=== PATIENT | female | born 1955 | race Caucasian/White ===

== ENCOUNTER 2019-07-25 01:44 | Day surgery (SDC) | payer BC, SELFPAY ==
[2019-07-20 13:08] VITALS: BMI 24.5
[2019-07-25 09:38] VITALS: BP 115/82; PULSE 111; RESP 16; TEMP 37.1; O2SAT 99
--- NOTE | 2019-07-25 09:42 | P.HP_ITS ---
History of Present Illness History of Present Illness Consent: Risks, benefits, and alternatives have been discussed and questions answered. Patient agrees to proceed with procedure. Chief complaint: Neoplasm Screening Narrative: Tory Chicas is a 64 year old W female Referred for screening colonoscopy. Patient is asymptomatic. Patient states she had a colonoscopy approximately 11 years ago. However since this time her brother was diagnosed with colon cancer in his early 60s PMFSH Past Medical History Medical History (Updated 07/25/19 @ 09:43 by Remigio Edwards MD) Dyslipidemia Surgical History Surgical History (Updated 07/25/19 @ 09:43 by Remigio Edwards MD) History of bilateral carpal tunnel release Social History Social History Smoking status: Former smoker (quit 20 years ago) Alcohol intake: never Meds Home Medications and Allergies Home Medications Medication Instructions Recorded Confirmed Type atorvastatin 10 mg tablet 10 mg PO DAILY #90 tablet 06/02/19 07/20/19 Rx alendronate [Fosamax] 70 mg PO WEEKLY 07/20/19 07/20/19 History multivitamin [Multiple Vitamins] 1 tablet PO DAILY 07/20/19 07/20/19 History Allergies Allergy/AdvReac Type Severity Reaction Status Date / Time nitrofurantoin Allergy Unknown AGITATION Verified 07/20/19 13:06 Exam Const: Orientation/consciousness: patient oriented x3 Resp: Auscultation: clear to auscultation bilaterally Cardio: Rate: regular rate Rhythm: regular rhythm Heart sounds: no murmurs GI: GI Palp: Yes Soft to palpation, No Tenderness to palpation present (GI), Yes No hepatosplenomegaly present and No Palpable mass present Auscultation: normal bowel sounds Neuro: General: patient oriented x3 and no focal motor deficits Extrem: General: no pedal edema
[2019-07-25] MEDS: LACTATED RINGERS 1,000 ML 150 ML IV CONT (10:00)
--- NOTE | 2019-07-25 10:12 | P.PNAN_ITS ---
Anes - Initial Pre Proc Eval Procedure: Operation Date: 07/25/19 11:00 Proposed Procedures p Screening Colonoscopy - Remigio Edwards MD Date/Time: 07/25/19 10:12 Surgeon: Remigio Edwards MD Pre Op Diagnosis: Neoplasm Screening Patient Data Age: 64 Gender: F Height: 5 ft 3 in Weight: 62.8 kg Last Vital Signs Temp 98.7 F 07/25/19 09:38 Pulse 111 H 07/25/19 09:38 Resp 16 07/25/19 09:38 BP 115/82 07/25/19 09:38 Pulse Ox 99 07/25/19 09:38 Allergies Allergy/AdvReac Type Severity Reaction Status Date / Time nitrofurantoin Allergy Unknown AGITATION Verified 07/25/19 09:52 Home Medications Medication Instructions Recorded Confirmed Type atorvastatin 10 mg tablet 10 mg PO DAILY #90 tablet 06/02/19 07/25/19 Rx alendronate [Fosamax] 70 mg PO WEEKLY 07/20/19 07/25/19 History multivitamin [Multiple Vitamins] 1 tablet PO DAILY 07/20/19 07/25/19 History Patient hx anesthesia problems: none Family hx anesthesia problems: none PMFSH Past Medical History Medical History (Updated 07/25/19 @ 09:43 by Remigio Edwards MD) Dyslipidemia Surgical History Surgical History (Updated 07/25/19 @ 09:43 by Remigio Edwards MD) History of bilateral carpal tunnel release Social History Social History Smoking status: Former smoker (quit 20 years ago) Alcohol intake: never Anes - Eval Final PreProcedure Day of Procedure 07/25/19 10:12 Patient weight: normal Heart: regular rate and rhythm Lungs: clear to auscultation Airway: Mallampati scale class II Neurological: alert and oriented Last oral intake: >/= 8 hours ASA classification: II Emergent: no Anesthetic plan: proceed Anesthesia type and monitoring: general GIVS and standard monitoring Informed Consent: The patient's anesthetic plan and its attendant risks and benefits were discussed with the patient/family/POA. Questions were solicited and answers provided to the satisfaction of the patient/family/POA.
[2019-07-25] MEDS: SIMETHICONE ORAL SUSPENSION 20 MG/0.3 ML 30 ML BOTTLE 0.6 ML IRRIGATION (11:30)
[2019-07-25 11:35] VITALS: BP 110/66; PULSE 90; RESP 17; O2SAT 98
[2019-07-25 11:45] VITALS: BP 94/60; PULSE 95; RESP 24; O2SAT 98
[2019-07-25 11:55] VITALS: BP 92/72; PULSE 78; RESP 19; O2SAT 100
== END 2019-07-25 12:06 | disposition home or self-care (01) ==
PROVIDERS: PCP Family Medicine; Visit Provider Internal Medicine Gastroenterology
PROC: 0DJD8ZZ Inspection of Lower Intestinal Tract, Via Natural or Artificial Opening Endoscopic (ICD-10-PCS; CPT 45378; principal; 2019-07-25 11:00)
DX: Z12.11 Encounter for screening for malignant neoplasm of colon (principal); K64.1 Second degree hemorrhoids; K64.4 Residual hemorrhoidal skin tags; K57.30 Diverticulosis of large intestine without perforation or abscess without bleeding; Z80.0 Family history of malignant neoplasm of digestive organs; E78.5 Hyperlipidemia, unspecified; Z87.891 Personal history of nicotine dependence
CPT/HCPCS: 45378; J2704; J7120

== ENCOUNTER 2019-12-16 08:46 | Outpatient (CLI) | payer BC, SELFPAY ==
--- NOTE | ~2019-12-16 | DEXA_ITS ---
Bone Density Report Name: Tory Chicas Age: 64 Sex: Female Ethnicity: White Date of : 1955 Indication: osteopenia; monitoring treatment; parental hip fracture; postmenopausal Referring Provider: Annamarie Lord Study: Bone densitometry was performed. Exam Date: December 16, 2019 Accession number: [id number] Bone Density: Region BMD T-score Z-score Classification AP Spine (L1-L4) 0.892 -1.4 0.3 Osteopenia Femoral Neck (Left) 0.547 -2.7 -1.2 Osteoporosis Total Hip (Left) 0.751 -1.6 -0.4 Osteopenia Total Hip Bilateral Avg 0.764 -1.5 -0.3 Osteopenia Femoral Neck (Right) 0.561 -2.6 -1.1 Osteoporosis Total Hip (Right) 0.776 -1.4 -0.1 Osteopenia World Health Organization criteria for BMD impression classify patients as: Normal (T-score at or above -1.0), Osteopenia (T-score between -1.0 and -2.5), or Osteoporosis (T-score at or below -2.5). 10-year Fracture Risk: FRAX not reported because: Some T-score for Spine Total or Hip Total or Femoral Neck at or below -2.5 Treated for osteoporosis Previous Exams: Region Exam Age BMD T-score BMD Change BMD Change Date g/cm2 vs Baseline vs Previous AP Spine(L1-L4) 12/16/2019 64 0.892 -1.4 -0.102(-10.2%) 0.046(5.4%)# 04/22/2012 57 0.847 -1.8 -0.148(-14.8%) -0.021(-2.4%)# 08/29/2008 53 0.868 -1.6 -0.126(-12.7%) -0.126(-12.7%) 04/02/2005 50 0.994 -0.5 Total Hip(Left) 12/16/2019 64 0.751 -1.6 -0.059(-7.2%)# 0.033(4.5%)* 05/29/2016 61 0.718 -1.8 -0.091(-11.3%) -0.045(-5.9%)# 04/22/2012 57 0.763 -1.5 -0.047(-5.7%)# 0.041(5.7%)# 08/29/2008 53 0.722 -1.8 -0.088(-10.8%) -0.088(-10.8%) 04/02/2005 50 0.810 -1.1 Total Hip(Right) 12/16/2019 64 0.776 -1.4 0.001(0.1%)# 0.029(3.8%)* 05/29/2016 61 0.747 -1.6 -0.028(-3.6%)# -0.065(-8.0%)# 04/22/2012 57 0.812 -1.1 0.037(4.8%)# 0.075(10.2%)# 08/29/2008 53 0.737 -1.7 -0.038(-4.9%)* -0.038(-4.9%)* 04/02/2005 50 0.775 -1.4 *Denotes significance at 95% confidence level, LSC for AP Spine = 0.022 g/cm2, LSC for Total Hip = 0.027 g/cm2 Clinical Information Provided by Patient: Parent has had a hip fracture Is being treated for osteoporosis Has used the following medications: Fosamax (i.e. alendronate), HRT (i.e. estrogen/hormone therapy), Vitamin D, Calcium Patient maximum height was 63 Menopause Age: 50 Onset of menses at age 15 Number of children 1 Impression: The patient has osteoporos
== END 2019-12-16 08:47 | disposition home or self-care (01) ==
LOC: ANHIMG 08:51
PROVIDERS: PCP Family Medicine; Visit Provider Family Medicine
DX: M81.0 Age-related osteoporosis without current pathological fracture (principal); Z78.0 Asymptomatic menopausal state
CPT/HCPCS: 77080

== ENCOUNTER 2020-04-28 08:12 | Outpatient (NON) | payer MEDICARE, SELFPAY ==
[2020-04-28 22:13] LABS: SARS-CoV-2 RNA PCR Negative
== END 2020-04-28 08:13 ==
PROVIDERS: PCP Family Medicine; Visit Provider Family Medicine
DX: Z20.828 Contact with and (suspected) exposure to other viral communicable diseases (principal)
CPT/HCPCS: 87635; C9803; U0003

== ENCOUNTER 2020-07-17 10:05 | Outpatient (CLI) | payer MEDICARE, SELFPAY ==
--- NOTE | ~2020-07-17 | MM_ITS ---
EXAMINATION: MM screening [facility] w jimmie HISTORY: Screening mammogram TECHNIQUE: Craniocaudal and mediolateral oblique 3-D tomosynthesis images were obtained and synthetic 2-D images were generated. CAD analysis was submitted and interpreted. COMPARISON: 07/08/2019, 07/23 2018, 05/2017 bilateral digital screening mammogram examinations BREAST PARENCHYMAL COMPOSITION: The breasts are heterogeneously dense, which may obscure small masses . FINDINGS: There is no evidence of suspicious mass, calcification, or architectural distortion to sugg est malignancy in either breast. There has been no suspicious interval change. IMPRESSION: 1. No mammographic evidence of malignancy. 2. Recommend routine screening mammography in one year. BI-RADS Category 1: Negative Reviewed, dictated and finalized at location A. CLABLE MATERIALS COLLECTOR
== END 2020-07-17 10:06 | disposition home or self-care (01) ==
LOC: ANHIMG 10:09
PROVIDERS: PCP Family Medicine; Visit Provider Family Medicine
DX: Z12.31 Encounter for screening mammogram for malignant neoplasm of breast (principal)
CPT/HCPCS: 77063; 77067

== ENCOUNTER 2021-07-19 07:11 | Outpatient (CLI) | payer MEDICARE, SELFPAY ==
--- NOTE | ~2021-07-19 | MM_ITS ---
EXAMINATION: MM screening [facility] w jimmie HISTORY: Screening TECHNIQUE: Craniocaudal and mediolateral oblique 3-D tomosynthesis images were obtained and synthetic 2-D images were generated. CAD analysis was submitted and interpreted. COMPARISON: Comparison to multiple prior studies sequentially, with oldest reviewed study dated 04/29. BREAST PARENCHYMAL COMPOSITION: . The breasts are extremely dense, which lowers the sensitivity of ma mmography FINDINGS: There is no evidence of suspicious mass, calcification, or architectural distortion to sugg est malignancy in either breast. There has been no suspicious interval change. IMPRESSION: 1. No mammographic evidence of malignancy. 2. Recommend routine screening mammography in one year. BI-RADS Category 1: Negative Reviewed, dictated and finalized at location A. OIDERER
== END 2021-07-19 07:12 | disposition home or self-care (01) ==
LOC: ANHIMG 07:13
PROVIDERS: PCP Family Medicine; Visit Provider Family Medicine
DX: Z12.31 Encounter for screening mammogram for malignant neoplasm of breast (principal)
CPT/HCPCS: 77063; 77067

== ENCOUNTER → 2022-02-18 08:58 | Outpatient (CLI) | payer MEDICARE, SELFPAY ==
--- NOTE | ~2022-02-18 | XR_ITS ---
EXAM: XR wrist LT 2V, XR forearm LT 2V DATE: 02/18/2022 09:31 HISTORY: M25.532 - Pain in left wrist . COMPARISON: None available. FINDINGS: Decreased mineralization. No fracture or dislocation. No lytic or blastic lesion. Mild ezra rowing, sclerosis, and osteophytosis at the triscaphe, trapeziometacarpal, and radiocarpal joints. Ol d ulnar styloid fracture. Slight ulnar positive variance. No erosion or periosteal change. Soft tissu es within normal limits. IMPRESSION: Mild osteoarthritic changes at the triscaphe, trapeziometacarpal, and radiocarpal joints. Osteopenia. Reviewed, dictated and finalized at location K. IMPRESSION: Mild osteoarthritic changes at the triscaphe, trapeziometacarpal, a nd radiocarpal joints. Osteopenia.
== END ==
PROVIDERS: PCP Nurse Practitioner; Visit Provider Nurse Practitioner
DX: M25.532 Pain in left wrist (principal); M79.602 Pain in left arm; M19.032 Primary osteoarthritis, left wrist; M85.88 Other specified disorders of bone density and structure, other site
CPT/HCPCS: 73090; 73100

== ENCOUNTER 2022-03-04 08:01 | Outpatient (CLI) | payer MEDICARE, SELFPAY ==
--- NOTE | ~2022-03-04 | DEXA_ITS ---
Bone Density Report Name: AMBER LEE Age: 67 Sex: Female Ethnicity: White Date of : 1955 Indication: osteopenia; parental hip fracture; postmenopausal Referring Provider: MELLY RAO Study: Bone densitometry was performed. Exam Date: March 04, 2022 Accession number: [id number] Bone Density: Region BMD T-score Z-score Classification AP Spine(L1-L4) 0.878 -1.5 0.4 Osteopenia Femoral Neck (Left) 0.568 -2.5 -0.9 Osteoporosis Total Hip (Left) 0.760 -1.5 -0.2 Osteopenia Femoral Neck (Right) 0.567 -2.5 -0.9 Osteoporosis Total Hip (Right) 0.784 -1.3 0.0 Osteopenia Total Hip Mean 0.772 -1.4 -0.1 Osteopenia World Health Organization criteria for BMD impression classify patients as: Normal (T-score at or above -1.0), Osteopenia (T-score between -1.0 and -2.5), or Osteoporosis (T-score at or below -2.5). 10-year Fracture Risk: FRAX not reported because: Some T-score for Spine Total or Hip Total or Femoral Neck at or below -2.5 Previous Exams: Region Exam Age BMD T-score BMD Change BMD Change Date g/cm2 vs Baseline vs Previous AP Spine (L1-L4) 03/04/2022 67 0.878 -1.5 0.031 (3.7%)# -0.014 (-1.6%) 12/16/2019 64 0.892 -1.4 0.046 (5.4%)# 0.046 (5.4%)# 04/22/2012 57 0.847 -1.8 Total Hip(Left) 03/04/2022 67 0.760 -1.5 -0.003 (-0.4%) 0.009 (1.2%) 12/16/2019 64 0.751 -1.6 -0.012 (-1.6%) 0.033 (4.5%)* 05/29/2016 61 0.718 -1.8 -0.045 (-5.9%) -0.045 (-5.9%) 04/22/2012 57 0.763 -1.5 Total Hip(Right) 03/04/2022 67 0.784 -1.3 -0.029 (-3.5%) 0.008 (1.0%) 12/16/2019 64 0.776 -1.4 -0.036 (-4.5%) 0.029 (3.8%)* 05/29/2016 61 0.747 -1.6 -0.065 (-8.0%) -0.065 (-8.0%) 04/22/2012 57 0.812 -1.1 *Denotes significance at 95% confidence level, LSC for AP Spine = 0.022 g/cm2, LSC for Total Hip = 0.027 g/cm2 # Denotes dissimilar scan types or analysis methods Clinical Information Provided by Patient: Parent has had a hip fracture Has used the following medications: Vitamin D, Calcium Patient maximum height was 63 No regular weight bearing exercise Drinks caffeinated beverages Onset of menses at age 14 Number of children 1 Impression: The patient has osteoporosis, based on the Left Femoral Neck T-score. The patient has risk factors, including: parental hip fracture. No significant bone loss was observed. Discussion: INCREASED RISK OF FRACTURE. BONE DENSITY IS UNDESIRABLY
== END 2022-03-04 08:02 | disposition home or self-care (01) ==
PROVIDERS: PCP Nurse Practitioner; Visit Provider Physician Assistant
DX: Z78.0 Asymptomatic menopausal state (principal); M85.88 Other specified disorders of bone density and structure, other site; M81.0 Age-related osteoporosis without current pathological fracture
CPT/HCPCS: 77080

== ENCOUNTER → 2022-03-21 10:42 | Outpatient (CLI) | payer MEDICARE, SELFPAY ==
--- NOTE | ~2022-03-21 | MR_ITS ---
EXAMINATION: MR wrist LT wo con DATE: 03/21/2022 11:14 INDICATION: Left wrist pain. TECHNIQUE: Magnetic resonance imaging (MRI) of the wrist was performed without intravenous contrast. Sequences performed include coronal T1-weighted FSE, coronal PD-weighted FS FSE, axial PD-weighted FS FSE, axial PD-weighted FSE, sagittal PD-weighted FSE, and sagittal PD-weighted FS FSE. COMPARISON: Left wrist radiographs 02/18/2022 FINDINGS: Intrinsic ligaments: There is degeneration of scapholunate ligament and lunotriquetral ligament without well-defined tears . Triangular fibrocartilage complex (TFCC): There is a partial thickness tear of distal surface of triangular fibrocartilage. Extensor wrist: There is severe tendinopathy and partial tears of abductor pollicis longus tendon and extensor pollic is brevis tendon with mild tenosynovitis. There is mild tendinopathy of the extensor carpi ulnaris. Flexor wrist: The flexor tendons are normal. Median nerve is normal. Guyon's canal: Ulnar nerve is normal. Bones/other: Bone alignment is normal. No fracture. There is mild osteoarthritis of first carpometacarpal joint. T here are subchondral cysts in proximal and distal aspects of lunate. IMPRESSION: 1. Severe tendinopathy and partial tears of the first extensor compartment tendons with mild tenosyno vitis (De Quervain tenosynovitis). Reviewed, dictated and finalized at location A. IMPRESSION: 1. Severe tendinopathy and partial tears of the first extensor compartment tend ons with mild tenosynovitis (De Quervain tenosynovitis).
== END ==
PROVIDERS: PCP Family Medicine; Visit Provider Nurse Practitioner
DX: M25.532 Pain in left wrist (principal); M65.4 Radial styloid tenosynovitis [de Quervain]
CPT/HCPCS: 73221

== ENCOUNTER 2022-04-09 08:53 | Outpatient (CLI) | payer MEDICARE, SELFPAY ==
--- NOTE | 2022-04-09 09:03 | ECG_ITS ---
Measurements Intervals Covert Rate: 91 P: 73 AK: 159 QRS: -51 QRSD: 101 T: 50 QT: 366 QTc: 452 Interpretive Statements SINUS RHYTHM POSSIBLE LEFT ATRIAL ENLARGEMENT [-0.1mV P WAVE IN V1/V2] INCOMPLETE RIGHT BUNDLE BRANCH BLOCK [90+ ms QRS DURATION, TERMINAL R IN V1/V2, 40+ ms S IN I/aVL/V4/V5/V6] LEFT ANTERIOR FASCICULAR BLOCK [QRS AXIS <= -45, QR IN I, RS IN II] NO PREVIOUS ECG AVAILABLE FOR COMPARISON Electronically Signed On 04-09-2022 15:21:44 CDT by Tyrell Reveles M.D.
== END 2022-04-09 08:54 | disposition home or self-care (01) ==
LOC: ANHSURGERY 08:55
PROVIDERS: PCP Family Medicine; Visit Provider Orthopaedic Surgery
DX: Z01.810 Encounter for preprocedural cardiovascular examination (principal); I45.2 Bifascicular block; E78.00 Pure hypercholesterolemia, unspecified
CPT/HCPCS: 93005

== ENCOUNTER 2022-04-14 00:50 | Day surgery (SDC) | payer MEDICARE, SELFPAY ==
[2022-04-04 14:57] VITALS: BMI 25.4
--- NOTE | 2022-04-04 15:03 | PC.NURSE ---
PRE-OP INSTRUCTIONS, PLEASE READ CAREFULLY Report to the Outpatient Waiting Room, entrance under the green pavilion located off [facility], at time _1100_ on date _04/14/22_. OR Time: _1 PM_. Time changes happen often and if your time is changed the preop area will call you the afternoon before. - You and your visitor will be asked to self-screen and do not enter if you have any COVID symptoms. - We encourage only one visitor and NO visitors under age 16 are allowed at this time. Your visitor will receive communication by the phone number that is given day of service. - The patient visitor is requested to social distance or may leave the building when not with patient due to restrictions. - A mask is required within the hospital. Patients may have clear liquids (water, carbonated beverages, clear teas, apple juice) until 3 hours prior to surgery with a maximum of 20 ounces. - No food from midnight until time of surgery - Infants may have breast milk until 4 hours before surgery, infant formula 6 hours prior to surgery. - Children will be allowed to drink immediately following surgery. If applicable, please bring a bottle or sippy cup to assist with drinking. Juice, water, soda, and popsicles are readily available. For infants on formula, please bring formula the day of surgery. Pacifiers are allowed. Take the following medications with a SIP of water the morning of surgery: _CELECOXIB_ Medications to discontinue per ANESTHESIA - _MULTIVITAMIN 3 DAYS PRIOR TO SURGERY, Date to take last dose 04/10/22_ Please no make-up, nail albanian, hairspray, perfume, deodorant, or body powder the day of surgery. No jewelry (including any body piercings) or valuables the day of surgery, leave them at home. Please take a shower or bath the night before, or the morning of, surgery with an antibacterial soap. Wear comfortable, loose fitting clothing. Children are encouraged to wear pajamas. - Jewelry must be removed prior to entering the operating room. Rings and piercings that are not removed may be cut off. - The hospital will not accept responsibility for valuables. - Please leave all valuables, including medications, at home the day of surgery. If you are going home after surgery, a licensed driver starting gate must drive you home. - NO public transportation without another adult. - We recommend that an adult stay with you for 24 hours following discharge. - We also recommend that you do not drive, make important decision, drink alcoholic beverages, or take any drugs that were not prescribed by your health care provider for at least 24 hours after your discharge time. For Pediatric surgeries, we recommend two adults accompany the child home. Follow any additional instructions given to you from your surgeon. If you or anyone in your household have experienced Covid symptoms in the past week, please notify your surgeon or the nurse liaison at the phone number below for possible testing. Telephone instructions given to and asked if any additional questions and then verbalized understanding. Patient advised to call surgeon office or pre surgery nurse liaison [phone] if any additional questions.
--- NOTE | 2022-04-14 12:04 | WPDANESEPPF ---
Anes - Initial Pre Proc Eval Procedure: Operation Date: 04/14/22 13:00 Proposed Procedures p First Dorsal Compartment Release Left Side - Paul Ochoa MD Date/Time: 04/14/22 12:04 Surgeon: Paul Ochoa MD Pre Op Diagnosis: left wrist pain Patient Data Age: 67 Gender: F Height: 1.6 m Weight: 65 kg Allergies Allergy/AdvReac Type Severity Reaction Status Date / Time nitrofurantoin Allergy Unknown AGITATION Verified 04/14/22 11:46 Home Medications Medication Instructions Recorded Confirmed Type multivitamin (Multiple Vitamins 1 tablet PO DAILY 07/20/19 04/10/22 History tablet) calcium carbonate 600 mg-vitamin 1 cap PO HS 08/04/19 04/10/22 History D3 12.5 mcg (500 unit) capsule (Calcium 600 with Vitamin D3) atorvastatin 10 mg tablet See Rx Instructions .Route 03/21/22 04/10/22 Rx .COMPLEX #90 tabs celecoxib 200 mg capsule (Celebrex) 200 mg PO BID #30 caps 03/25/22 04/10/22 Rx valacyclovir 1 gram tablet 2,000 mg PO Q12H PRN Pain 04/04/22 04/10/22 History Patient hx anesthesia problems: none Family hx anesthesia problems: none Results Review: All pre-operative results and documents have been reviewed as part of the pre-operative evaluation. [facility] Past Medical History Medical History (Updated 04/10/22 @ 10:36 by Paul Ochoa MD) Arthritis De Quervain's tenosynovitis, left Dyslipidemia Hepatitis C antibody test negative (01/02/20) Osteoporosis Surgical History Surgical History History of bilateral carpal tunnel release Family History Family History Mother Diabetes mellitus Family history of glaucoma Family history of cardiac disorder Family history of coronary artery disease Father Hypertension Family history of elevated blood lipids Family history of coronary artery disease Family history of malignant neoplasm of esophagus Cancer Heart disease Sibling Hypertension Carcinoma of colon Cancer Depression Grandparent Family history of malignant neoplasm of bone Family history of coronary artery disease Cancer Diabetes mellitus Heart disease Other Cancer Social History Social History Smoking status: Former smoker Tobacco type: cigarettes Second hand tobacco smoke exposure: No Additional smoking assessment comments: Quit a long time ago Alcohol intake: never Substance use: never Substance use type: does not use Living arrangements: with family Additional living arrangements comments: Gender identity (if verbalized by the patient): Female Sexual Orientation (if Verbalized by the Patient): Straight or Heterosexual Spiritual care concerns: Yes (Latter-Day) Agree to blood products: Yes Anes - Eval Final PreProcedure Day of Procedure 04/14/22 12:04 Patient weight: overweight Heart: regular rate and rhythm Lungs: clear to auscultation Airway: Mallampati scale class II Neurological: alert and oriented Last oral intake: >/= 8 hours ASA classification: II Emergent: no Anesthetic plan: proceed Anesthesia type and monitoring: general GIVS and standard monitoring Results Review: All pre-operative results and documents have been reviewed as part of the pre-operative evaluation. Informed Consent: The patient's anesthetic plan and its attendant risks and benefits were discussed with the patient/family/POA. Questions were solicited and answers provided to the satisfaction of the patient/family/POA.
[2022-04-14] MEDS: ACETAMINOPHEN 500 MG TABLET 1000 MG PO (12:10)
[2022-04-14] MEDS: LACTATED RINGERS 1,000 ML 30 ML IV CONT (12:21)
[2022-04-14 12:23] VITALS: BP 125/84; PULSE 98; RESP 16; TEMP 36.8; O2SAT 100
[2022-04-14] MEDS: KETOROLAC 15 MG/ML VIAL (*BKC) IV PUSH (12:27)
--- NOTE | 2022-04-14 12:48 | WPDHPUPDATE1 ---
History and Physical Update Update Date/Time: 04/14/22 12:48 History and Physical has been reviewed, including an updated exam of the patient. There are NO changes in the patient's condition. Risks, benefits, and alternatives have been discussed and questions answered. Patient agrees to proceed with procedure.
[2022-04-14] MEDS: ceFAZolin 2 GM/D5W 50 ML 2 GM/50 ML BAG IVPB (13:11)
[2022-04-14] MEDS: BUPIVACAINE/EPINEPHRINE 0.25% 50 ML VIAL 10 ML INFILTRATE (13:39)
[2022-04-14 14:01] VITALS: BP 86/63; PULSE 76; RESP 14; O2SAT 97
--- NOTE | 2022-04-14 14:14 | P.OP_ITS ---
Procedure Note - Detailed Date of Procedure 04/14/22 Pre-op Diagnosis left first dorsal compartment stenosing tenosynovitis Post-op Diagnosis Same Procedure Performed left first dorsal compartment release Surgeon Paul Ochoa MD Metal Building Assembler Ralph Anesthesia MAC and Local Description of Procedure The patient was identified and proper site identified. She was taken to the operating room and transferred to the or table placing her supine taking care to pad her torso and extremities. Nonsterile tourniquet was placed high on the left arm. Left upper extremity was prepped and draped free in usual sterile fashion. Patient was administered IV sedation. Several cc of 0.25% Marcaine and epinephrine solution was infiltrated in subcutaneous tissue over the left radial styloid. Extremity was exsanguinated and tourniquet was inflated to 200 millimeters of mercury remaining up for about 9 minutes. Launch to incision was made over the radial styloid. Subcutaneous tissue was bluntly dissected protecting the sensory branch of the radial nerve. First dorsal compartment was identified and then released longitudinally in line with the tendons releasing them completely.. There was an abundance of fluid within the tendon sheath. The wound was irrigated with sterile saline . Skin edges reapproximated with three 0 Prolene and Steri-Strips. Sterile dressing was applied. Tourniquet was release. She tolerated the procedure well was transferred back to a cart and taken to the recovery area in stable condition. There were no known intraoperative complications. Estimated blood loss negligible. She received perioperative antibiotics. Estimated Blood Loss -1.0 Tourniquet Time 9 Drains No Packing No Pathology None sent Complications No immediate complications Condition Stable Disposition PACU
[2022-04-14 14:15] VITALS: BP 99/65; PULSE 70; RESP 14; O2SAT 98
[2022-04-14 14:30] VITALS: BP 108/67; PULSE 65; RESP 14; O2SAT 99
[2022-04-14 15:00] VITALS: BP 117/69; PULSE 66; RESP 14
== END 2022-04-14 15:17 | disposition home or self-care (01) ==
PROVIDERS: PCP Family Medicine; Visit Provider Orthopaedic Surgery
PROC: (CPT 25000; principal; 2022-04-14 13:00)
DX: M65.4 Radial styloid tenosynovitis [de Quervain] (principal); E78.5 Hyperlipidemia, unspecified; M81.0 Age-related osteoporosis without current pathological fracture; Z87.891 Personal history of nicotine dependence
CPT/HCPCS: 25000; 93005; A9270; J0690; J1885; J2250; J2405; J2704; J3010; J7120

== ENCOUNTER 2022-07-16 08:12 | Outpatient (CLI) | payer MEDICARE, SELFPAY ==
[2022-07-16 19:48] LABS: Hematocrit 43.4 % (37.0-47.0); Hemoglobin 14.3 g/dL (12.0-15.0); Mean Corpuscular HGB Conc 32.9 g/dl (32-36); Mean Corpuscular Hemoglobin 31.2 pg (26-34); Mean Corpuscular Volume 94.8 fl (80-100); Mean Platelet Volume 11.8 fl (7.4-10.4); Platelet Count Result 187 k/mm3 (150-375); Red Blood Count 4.58 M/mm3 (4.2-5.4); White Blood Count 6.2 K/mm3 (4.5-10.0)
[2022-07-16 22:04] LABS: Alanine Aminotransferase 22 U/L (6-35); Albumin Level 4.2 g/dL (3.5-5.1); Alkaline Phosphatase 74 U/L (38-126); Anion Gap 6 mmol/L (8-16); Aspartate Amino Transferase 38 U/L (14-36); Bilirubin,Total 0.5 mg/dL (0.2-1.3); Blood Urea Nitrogen 17 mg/dL (7-17); Calcium 9.1 mg/dL (8.4-10.2); Carbon Dioxide 28 mmol/L (22-30); Chloride 107 mmol/L (98-107); Cholesterol 173 mg/dL (0-200); Estimated Glomerular Filt Rate > 60; Glucose 86 mg/dL (65-110); HDL Direct 72 mg/dL; Potassium 4.8 mmol/L (3.4-5.0); Sodium 141 mmol/L (137-145); Triglycerides 58 mg/dL (<150)
[2022-07-16 22:15] LABS: LDL Cholesterol Direct 63 mg/dL
== END 2022-07-16 08:13 | disposition home or self-care (01) ==
LOC: ANHGOSHLAB 08:14
PROVIDERS: PCP Family Medicine; Visit Provider Family Medicine
DX: E78.00 Pure hypercholesterolemia, unspecified (principal); Z79.899 Other long term (current) drug therapy; R03.0 Elevated blood-pressure reading, without diagnosis of hypertension
CPT/HCPCS: 36415; 80053; 80061; 84443; 85027

== ENCOUNTER 2022-07-21 07:13 | Outpatient (CLI) | payer MEDICARE, SELFPAY ==
--- NOTE | ~2022-07-21 | MM_ITS ---
EXAMINATION: MM screening [facility] w jimmie HISTORY: Screening mammogram TECHNIQUE: Craniocaudal and mediolateral oblique 3-D tomosynthesis images were obtained and synthetic 2-D images were generated. CAD analysis was submitted and interpreted. COMPARISON: 07/19/2021, 07/17/2020, 07/08/2019 bilateral screening mammogram examinations BREAST PARENCHYMAL COMPOSITION: The breasts are heterogeneously dense, which may obscure small masses . FINDINGS: There is no evidence of suspicious mass, calcification, or architectural distortion to sugg est malignancy in either breast. There has been no suspicious interval change. IMPRESSION: 1. No mammographic evidence of malignancy. 2. Recommend routine screening mammography in one year. BI-RADS Category 1: Negative Reviewed, dictated and finalized at location A. TMENT MANAGER
== END 2022-07-21 07:14 | disposition home or self-care (01) ==
LOC: ANHIMG 07:14
PROVIDERS: PCP Family Medicine; Visit Provider Family Medicine
DX: Z12.31 Encounter for screening mammogram for malignant neoplasm of breast (principal)
CPT/HCPCS: 77063; 77067

== ENCOUNTER 2023-05-29 08:33 | Emergency (ER) | payer MEDICARE, SELFPAY ==
[2023-05-29 08:42] VITALS: BP 133/92; PULSE 92; RESP 16; TEMP 36.2; O2SAT 98
--- NOTE | 2023-05-29 09:31 | ED.URI ---
HPI - URI/Sore Throat General Chief Complaint: Upper Respiratory Infection Stated Complaint: Sore Throat Time Seen by Provider: 05/29/23 09:29 Source: patient and RN notes reviewed Mode of arrival: ambulatory Limitations: no limitations History of Present Illness HPI Narrative: Patient presents today complaining of 3 day history of sore throat, headache, rhinorrhea, cough. Denies shortness of breath or chest pain. She has been using Delsym without relief and currently rates her pain 6/10. No history of asthma or COPD. She is a nonsmoker. Related Data Home Medications Medication Instructions Recorded Confirmed multivitamin (Multiple Vitamins 1 tablet PO DAILY 07/20/19 05/29/23 tablet) calcium carbonate 600 mg-vitamin 1 cap PO HS 08/04/19 05/29/23 D3 12.5 mcg (500 unit) capsule (Calcium 600 with Vitamin D3) atorvastatin 10 mg tablet 10 mg PO DAILY 03/25/23 05/29/23 Allergies Allergy/AdvReac Type Severity Reaction Status Date / Time nitrofurantoin Allergy Unknown Dyspnea / Verified 05/29/23 08:48 SOB Review of Systems Review of Systems: CONSTITUTIONAL: Denies body aches, fever, chills, or sweats. EYES: Denies visual changes, redness, or discharge. ENT: Denies congestion, or otalgia.+ rhinorrhea, sore throat CARDIOVASCULAR: Denies chest pain, palpitations, or edema. RESPIRATORY: Denies dyspnea.+ cough GASTROINTESTINAL: Denies abdominal pain, nausea, vomiting, or diarrhea. GENITOURINARY: Denies dysuria or hematuria. SKIN: Denies rash, itching, or wounds. MUSCULOSKELETAL: Denies back pain, joint pain, or myalgia. NEUROLOGIC: Denies numbness, tingling, or weakness.+ headache PSYCH: Denies depression or anxiety. [facility] Past Medical History Medical History Arthritis Dyslipidemia Hepatitis C antibody test negative (01/02/20) Osteoporosis Surgical History Surgical History De Quervain's tenosynovitis, left Left first dorsal compartment release April 14, 2022 History of bilateral carpal tunnel release Family History Family History Mother Diabetes mellitus Family history of glaucoma Family history of cardiac disorder Family history of coronary artery disease Father Hypertension Family history of elevated blood lipids Family history of coronary artery disease Family history of malignant neoplasm of esophagus Cancer Heart disease Sibling Hypertension Carcinoma of colon Cancer Depression Grandparent Family history of malignant neoplasm of bone Family history of coronary artery disease Cancer Diabetes mellitus Heart disease Other Cancer Social History Social History Smoking status: Former smoker Tobacco type: cigarettes Second hand tobacco smoke exposure: No Additional smoking assessment comments: Quit a long time ago Alcohol intake: never Substance use: never Substance use type: does not use Lack of Transportation: No Lack of Food: Never True Current Housing: I Have Housing Concerned About Future Housing: No Difficulty Paying Gas/Electric Bills: No Difficulty Paying for Meds: No Currently Unemployed: No Education: High School Diploma/GED Difficulty w/ Childcare or Family Care: No Living arrangements: with family Additional living arrangements comments: Occupation/Education: retired Gender identity (if verbalized by the patient): Female Sexual Orientation (if Verbalized by the Patient): Straight or Heterosexual Spiritual care concerns: Yes (Jewish) Agree to blood products: Yes Comments At time of signature, I have reviewed and agree with nursing past medical, surgical, social and family history unless otherwise noted. Please see nursing chart for further information
== END 2023-05-29 10:04 | disposition home or self-care (01) ==
PROVIDERS: Emergency Provider Nurse Practitioner; PCP Family Medicine
DX: J06.9 Acute upper respiratory infection, unspecified (principal); Z20.822 Contact with and (suspected) exposure to COVID-19; Z87.891 Personal history of nicotine dependence; M19.90 Unspecified osteoarthritis, unspecified site; E78.5 Hyperlipidemia, unspecified; M81.0 Age-related osteoporosis without current pathological fracture
CPT/HCPCS: 87081; 87426; 87804; 87880; 99213; C9803; G0463

== ENCOUNTER 2023-07-24 07:14 | Outpatient (CLI) | payer MEDICARE, SELFPAY ==
--- NOTE | ~2023-07-24 | MM_ITS ---
EXAMINATION: MM screening [facility] BI w jimmie HISTORY: Screening mammogram TECHNIQUE: Craniocaudal and mediolateral oblique 3-D tomosynthesis images were obtained and synthetic 2-D images were generated. CAD analysis was submitted and interpreted. COMPARISON: 07/21/2022, 07/19/2021, 07/17/2020 BREAST PARENCHYMAL COMPOSITION: The breasts are heterogeneously dense, which may obscure small masses . FINDINGS: No suspicious mass, calcification, or architectural distortion are identified in either mikel ast to suggest malignancy. There has been no suspicious interval change. IMPRESSION: 1. No mammographic evidence of malignancy. 2. Recommend routine screening mammography in one year. BI-RADS Category 1: Negative Reviewed, dictated and finalized at location A. IAC TECH
== END 2023-07-24 07:15 | disposition home or self-care (01) ==
LOC: ANHIMG 07:17
PROVIDERS: PCP Family Medicine; Visit Provider Nurse Practitioner
DX: Z12.31 Encounter for screening mammogram for malignant neoplasm of breast (principal)
CPT/HCPCS: 77063; 77067

== ENCOUNTER 2023-07-31 10:43 | Outpatient (CLI) | payer MEDICARE, SELFPAY ==
--- NOTE | ~2023-07-31 | DEXA_ITS ---
Bone Density Report Name: AMBER LEE Age: 68 Sex: Female Ethnicity: White Date of : 1955 Indication: postmenopausal; screening for osteoporosis; parental hip fracture; Referring Provider: PJ DIEGO Study: Bone densitometry was performed. Exam Date: July 31, 2023 Accession number: [id number] Bone Density: Region BMD T-score Z-score Classification AP Spine(L1-L4) 0.870 -1.6 0.4 Osteopenia Femoral Neck (Left) 0.597 -2.3 -0.6 Osteopenia Total Hip (Left) 0.766 -1.4 0.0 Osteopenia Femoral Neck (Right) 0.555 -2.6 -0.9 Osteoporosis Total Hip (Right) 0.767 -1.4 0.0 Osteopenia Total Hip Mean 0.767 -1.4 0.0 Osteopenia World Health Organization criteria for BMD impression classify patients as: Normal (T-score at or above -1.0), Osteopenia (T-score between -1.0 and -2.5), or Osteoporosis (T-score at or below -2.5). 10-year Fracture Risk: FRAX not reported because: Some T-score for Spine Total or Hip Total or Femoral Neck at or below -2.5 Clinical Information Provided by Patient: Parent has had a hip fracture Has used the following medications: Vitamin D, Calcium Patient maximum height was 63.0 No regular weight bearing exercise Drinks caffeinated beverages Onset of menses at age 15 Number of children 1 Impression: The patient has osteoporosis, based on the Right Femoral Neck T-score. The patient has risk factors, including: parental hip fracture. Discussion: INCREASED RISK OF FRACTURE. BONE DENSITY IS UNDESIRABLY LOW AT ONE OR MORE SKELETAL SITES, CONSISTENT WITH POSTMENOPAUSAL OSTEOPOROSIS. This patient's lowest T-score meets the World Health Organization's (WHO) criteria for osteoporosis at one or more sites (T-score -2.5 or below). In untreated patients, the risk of osteoporotic fracture increases approximately two-fold for each 1.0 SD decrease in T-score. Low bone density is not the only risk factor for fracture; also consider factors such as patient's age, frailty or poor health, risk of falling, risk of injury, previous osteoporotic fracture, family history of osteoporosis, cigarette smoking, low body weight, etc. Not everyone with low bone mineral density has osteoporosis; osteomalacia and other metabolic bone disorders should also be considered. Patients who have osteoporosis should be evaluated for specific diseases and conditions (secondary causes) that may cause or contribute to bone loss. The [place] [employer] Endocrinologists (AACE) and National Osteoporosis Foundation (NOF) recommend pharmacologic intervention for all postmenopausal women whose T-score is in this range. The patient should follow a healthful lifestyle (good nutrition with adequate calcium and vitamin D, and appropriate weight-bearing exercise). Follow-Up: Consider a repeat BMD and
== END 2023-07-31 10:44 | disposition home or self-care (01) ==
LOC: ANHIMG 10:45
PROVIDERS: PCP Family Medicine; Visit Provider Nurse Practitioner
DX: M85.89 Other specified disorders of bone density and structure, multiple sites (principal); M81.0 Age-related osteoporosis without current pathological fracture
CPT/HCPCS: 77080

== ENCOUNTER 2024-07-26 07:25 | Outpatient (CLI) | payer MEDICARE, SELFPAY ==
--- NOTE | ~2024-07-26 | MM_ITS ---
EXAMINATION: MM screening [facility] BI w jimmie HISTORY: Screening TECHNIQUE: Craniocaudal and mediolateral oblique 3-D tomosynthesis images were obtained and synthetic 2-D images were generated. CAD analysis was submitted and interpreted. COMPARISON: Comparison to multiple prior studies sequentially, with oldest reviewed study dated 08/2018. BREAST PARENCHYMAL COMPOSITION: Dense: The breasts are extremely dense, which lowers the sensitivity of mammography. FINDINGS: There is no evidence of suspicious mass, calcification, or architectural distortion to sugg est malignancy in either breast. There has been no suspicious interval change. IMPRESSION: 1. No mammographic evidence of malignancy. 2. Recommend routine screening mammography in one year. BI-RADS Category 1: Negative Reviewed, dictated and finalized at location A. S HANGER
== END 2024-07-26 07:26 | disposition home or self-care (01) ==
LOC: ANHIMG 07:27
PROVIDERS: PCP Family Medicine; Visit Provider Nurse Practitioner
DX: Z12.31 Encounter for screening mammogram for malignant neoplasm of breast (principal)
CPT/HCPCS: 77063; 77067

== ENCOUNTER 2024-10-20 01:17 | Day surgery (SDC) | payer MEDICARE, SELFPAY ==
[2024-10-10 13:11] VITALS: BMI 26.5
[2024-10-20 08:54] VITALS: BP 131/86; PULSE 94; RESP 18; TEMP 36.1; O2SAT 99; BMI 26.4
[2024-10-20] MEDS: LACTATED RINGERS 1,000 ML 150 ML IV CONT (09:01)
--- NOTE | 2024-10-20 09:32 | WPDANESEPPF ---
Anes - Initial Pre Proc Eval Procedure: Operation Date: 10/20/24 10:00 Proposed Procedures p Screening Colonoscopy - John Conner MD Date/Time: 10/20/24 09:32 Surgeon: John Conner MD Pre Op Diagnosis: malignant neoplasm of colon Patient Data Age: 69 Gender: F Height: 1.6 m Weight: 67.6 kg Last Vital Signs Temp 97.0 F L 10/20/24 08:54 Pulse 94 10/20/24 08:54 Resp 18 10/20/24 08:54 BP 131/86 10/20/24 08:54 Pulse Ox 99 10/20/24 08:54 O2 Del Method Room Air 10/20/24 08:54 Allergies Allergy/AdvReac Type Severity Reaction Status Date / Time nitrofurantoin Allergy Unknown Dyspnea / Verified 10/20/24 08:53 SOB Home Medications ?Medication ?Instructions ?Recorded ?Confirmed ?Type multivitamin (Multiple Vitamins 1 tablet PO DAILY 07/20/19 10/20/24 History tablet) calcium 600 mg (as 1 cap PO HS 08/04/19 10/20/24 History carbonate)-vitamin D3 12.5 mcg (500 unit) capsule (Calcium with Vit D3) denosumab 60 mg/mL subcutaneous 60 mg subcut [id number] #1 mL 08/17/23 10/10/24 Rx syringe (Prolia) atorvastatin 10 mg tablet 10 mg PO DAILY #90 tabs 05/12/24 10/20/24 Rx Patient hx anesthesia problems: none Family hx anesthesia problems: none Results Review: All pre-operative results and documents have been reviewed as part of the pre-operative evaluation. [facility] Past Medical History Medical History Osteoporosis Arthritis Hepatitis C antibody test negative (01/02/20) Dyslipidemia Surgical History Surgical History De Quervain's tenosynovitis, left Left first dorsal compartment release April 14, 2022 History of bilateral carpal tunnel release Family History Family History Mother Diabetes mellitus Family history of glaucoma Family history of cardiac disorder Family history of coronary artery disease Father Hypertension Family history of elevated blood lipids Family history of coronary artery disease Family history of malignant neoplasm of esophagus Cancer Heart disease Sibling Hypertension Carcinoma of colon Cancer Depression Grandparent Family history of malignant neoplasm of bone Family history of coronary artery disease Cancer Diabetes mellitus Heart disease Other Cancer Social History Social History Smoking status: Former smoker Tobacco type: cigarettes Second hand tobacco smoke exposure: No Additional smoking assessment comments: Quit a long time ago Alcohol intake: never Substance use: never Substance use type: does not use Lack of Transportation: No Lack of Food: Never True Current Housing: I Have Housing Concerned About Future Housing: No Difficulty Paying Gas/Electric Bills: No Difficulty Paying for Meds: No Currently Unemployed: No Education: High School Diploma/GED Difficulty w/ Childcare or Family Care: No Living arrangements: with family Additional living arrangements comments: Occupation/Education: retired Gender identity (if verbalized by the patient): Female Sexual Orientation (if Verbalized by the Patient): Straight or Heterosexual Spiritual care concerns: Yes (Quaker) Agree to blood products: Yes Anes - Eval Final PreProcedure Day of Procedure 10/20/24 09:32 Patient weight: normal Heart: regular rate and rhythm Lungs: clear to auscultation Airway: Mallampati scale class II Neurological: alert and oriented Last oral intake: >/= 8 hours ASA classification: II Emergent: no Anesthetic plan: proceed Anesthesia type and monitoring: general GIVS and standard monitoring Results Review: All pre-operative results and documents have been reviewed as part of the pre-operative evaluation. Informed Consent: The patient's anesthetic plan and its attendant risks and benefits were discussed with the patient/family/POA. Questions were solicited and answers provided to the satisfaction of the patient/family/POA.
--- NOTE | 2024-10-20 09:34 | P.HP_ITS ---
History of Present Illness History of Present Illness Consent: Risks, benefits, and alternatives have been discussed and questions answered. Patient agrees to proceed with procedure. Chief complaint: malignant neoplasm of colon Narrative: Troy Chicas is a 69 year old female with last colonoscopy 2019, brother had colon cancer Review of Systems Review of Systems: All systems reviewed & are unremarkable except as noted in HPI and below PMFSH Past Medical History Medical History (Updated 10/20/24 @ 09:35 by John Conner MD) Family history of colon cancer Osteoporosis Arthritis Hepatitis C antibody test negative (01/02/20) Dyslipidemia Surgical History Surgical History De Quervain's tenosynovitis, left Left first dorsal compartment release April 14, 2022 History of bilateral carpal tunnel release Family History Family History Mother Diabetes mellitus Family history of glaucoma Family history of cardiac disorder Family history of coronary artery disease Father Hypertension Family history of elevated blood lipids Family history of coronary artery disease Family history of malignant neoplasm of esophagus Cancer Heart disease Sibling Hypertension Carcinoma of colon Cancer Depression Grandparent Family history of malignant neoplasm of bone Family history of coronary artery disease Cancer Diabetes mellitus Heart disease Other Cancer Social History Social History Smoking status: Former smoker Tobacco type: cigarettes Second hand tobacco smoke exposure: No Additional smoking assessment comments: Quit a long time ago Alcohol intake: never Substance use: never Substance use type: does not use Lack of Transportation: No Lack of Food: Never True Current Housing: I Have Housing Concerned About Future Housing: No Difficulty Paying Gas/Electric Bills: No Difficulty Paying for Meds: No Currently Unemployed: No Education: High School Diploma/GED Difficulty w/ Childcare or Family Care: No Living arrangements: with family Additional living arrangements comments: Occupation/Education: retired Gender identity (if verbalized by the patient): Female Sexual Orientation (if Verbalized by the Patient): Straight or Heterosexual Spiritual care concerns: Yes (Confucianism) Agree to blood products: Yes Meds Home Medications and Allergies Home Medications ?Medication ?Instructions ?Recorded ?Confirmed ?Type multivitamin (Multiple Vitamins 1 tablet PO DAILY 07/20/19 10/20/24 History tablet) calcium 600 mg (as 1 cap PO HS 08/04/19 10/20/24 History carbonate)-vitamin D3 12.5 mcg (500 unit) capsule (Calcium with Vit D3) denosumab 60 mg/mL subcutaneous 60 mg subcut [id number] #1 mL 08/17/23 10/10/24 Rx syringe (Prolia) atorvastatin 10 mg tablet 10 mg PO DAILY #90 tabs 05/12/24 10/20/24 Rx Allergies Allergy/AdvReac Type Severity Reaction Status Date / Time nitrofurantoin Allergy Unknown Dyspnea / Verified 10/20/24 08:53 SOB Vital Signs Vital Signs - 24 hr 10/20/24 08:54 Temperature 97.0 F L Pulse Rate 94 Respiratory Rate 18 Blood Pressure 131/86 Pulse Oximetry 99 Oxygen Delivery Room Air Exam Const: General: comfortable and no acute distress HENMT: Face/Nose/Sinus: Normal nares present Eyes: General: appearance normal, both eyes and all related structures Neck: Neck: no JVD Resp: Auscultation: clear to auscultation bilaterally Cardio: Rate: regular rate Rhythm: regular rhythm GI: Inspection: non-distended GI Palp: Yes Soft to palpation Skin: General skin exam: normal color Neuro: Speech: normal speech Extrem: General: normal to inspection Psych: Mental Status: mental status grossly normal Assessment and Plan Assessment and plan (1) Family history of colon cancer: Code(s): Z80.0 - Family history of malignant neoplasm of digestive organs Status: Acute Assessment and Plan: colonoscopy
[2024-10-20 09:44] VITALS: BP 104/68; PULSE 82; RESP 17; O2SAT 98
[2024-10-20 09:54] VITALS: BP 105/68; PULSE 79; RESP 21; O2SAT 98
[2024-10-20 10:04] VITALS: BP 111/71; PULSE 70; RESP 21; O2SAT 100
== END 2024-10-20 10:09 | disposition home or self-care (01) ==
PROVIDERS: PCP Family Medicine; Referring Provider Nurse Practitioner; Visit Provider Internal Medicine Gastroenterology
PROC: 0DJD8ZZ Inspection of Lower Intestinal Tract, Via Natural or Artificial Opening Endoscopic (ICD-10-PCS; CPT 45378; principal; 2024-10-20 10:00)
DX: Z12.11 Encounter for screening for malignant neoplasm of colon (principal); K64.8 Other hemorrhoids; K57.30 Diverticulosis of large intestine without perforation or abscess without bleeding; E78.5 Hyperlipidemia, unspecified; M81.0 Age-related osteoporosis without current pathological fracture; M19.90 Unspecified osteoarthritis, unspecified site; Z98.890 Other specified postprocedural states; Z87.891 Personal history of nicotine dependence; Z80.0 Family history of malignant neoplasm of digestive organs; Z80.8 Family history of malignant neoplasm of other organs or systems; Z82.49 Family history of ischemic heart disease and other diseases of the circulatory system
CPT/HCPCS: G0105; J2704; J7120

== ENCOUNTER 2024-11-13 09:06 | Emergency (ER) | payer MEDICARE, SELFPAY ==
[2024-11-13 09:20] VITALS: BP 137/83; PULSE 89; RESP 12; TEMP 36.7; O2SAT 99
--- NOTE | 2024-11-13 09:37 | ED_ITS ---
HPI - Back Pain/Injury General Chief Complaint: Back Pain/Injury Stated Complaint: Back Pain Time Seen by Provider: 11/13/24 09:37 Source: patient, RN notes reviewed and old records reviewed Mode of arrival: ambulatory Limitations: no limitations History of Present Illness HPI Narrative: 69-year-old female who presents to [facility] with complaints of 2 week duration lower back pain after their sump pump went out and she carried buckets of water from the basement. Patient reports that pain is across the lower back with no radiation of pain down legs or any tingling or numbness. Patient reports no saddle paraesthesia no difficulty passing urine or stools, pain increases with changing positions and with ambulation. Patient reports that she has been taking Ibuprofen 600 mg about every 5 hours and using Salonpas patches to her lower back. MD elicited complaint: back pain Pertinent past history: other (none) Onset (ago): week(s) (2 weeks) Timing: constant Pain scale (0-10): 7 Quality: dull and aching Location: lumbar spine Exacerbating factors: walking and other (changing positions) Work related injury: No Related Data Home Medications Medication Instructions Recorded Confirmed Last Taken Type multivitamin (Multiple Vitamins 1 tablet PO DAILY 07/20/19 11/13/24 10/18/24 History tablet) calcium 600 mg (as 1 cap PO HS 08/04/19 11/13/24 10/18/24 History carbonate)-vitamin D3 12.5 mcg (500 unit) capsule (Calcium with Vit D3) Allergies Allergy/AdvReac Type Severity Reaction Status Date / Time nitrofurantoin Allergy Unknown Dyspnea / Verified 11/13/24 09:34 SOB Review of Systems Review of Systems: CONSTITUTIONAL: Denies fever, chills, or sweats. EYES: Denies visual changes, redness, or discharge. ENT: Denies rhinorrhea, congestion, sore throat, or otalgia. CARDIOVASCULAR: Denies chest pain, palpitations, or edema. RESPIRATORY: Denies cough or dyspnea. GASTROINTESTINAL: Denies abdominal pain, nausea, vomiting, or diarrhea. GENITOURINARY: Denies dysuria or hematuria. SKIN: Denies rash or itching. MUSCULOSKELETAL: reports lumbar back pain nonradiating, or myalgia. NEUROLOGIC: Denies headache, numbness, or weakness. PSYCHIATRIC: Denies anxiety or depression. All systems reviewed & are unremarkable except as noted in HPI and below PMFSH Past Medical History Medical History Family history of colon cancer Osteoporosis Arthritis Hepatitis C antibody test negative (01/02/20) Dyslipidemia Surgical History Surgical History De Quervain's tenosynovitis, left Left first dorsal compartment release April 14, 2022 History of bilateral carpal tunnel release Family History Family History Mother Diabetes mellitus Family history of glaucoma Family history of cardiac disorder Family history of coronary artery disease Father Hypertension Family history of elevated blood lipids Family history of coronary artery disease Family history of malignant neoplasm of esophagus Cancer Heart disease Sibling Hypertension Carcinoma of colon Cancer Depression Grandparent Family history of malignant neoplasm of bone Family history of coronary artery disease Cancer Diabetes mellitus Heart disease Other Cancer Social History Social History Years smoked: 30 Smoking status: Former smoker Tobacco type: cigarettes Second hand tobacco smoke exposure: No Additional smoking assessment comments: Quit a long time ago Alcohol intake: never Substance use: never Substance use type: does not use Lack of Transportation: No Lack of Food: Never True Current Housing: I Have Housing Concerned About Future Housing: No Difficulty Paying Gas/Electric Bills: No Difficulty Paying for Meds: No Currently Unemployed: No Education: High School Diploma/GED Difficulty w/ Childcare or Family Care: No Living arrangements: with family Additional living arrangements comments: Occupation/Education: retired Gender identity (if verbalized by the patient): Female Sexual Orientation (if Verbalized by the Patient): Straight or Heterosexual Spiritual care concerns: Yes (Sikhism) Agree to blood products: Yes Comments At time of signature, agree with nursing past medical, surgical, social and family history. There is no relevant family history pertinent to the presenting complaint Exam Narrative: GENERAL: Well-appearing, well-nourished, and in some acute distress related to lumbar back pain HEAD: Normocephalic, atraumatic. EYES: PERRLA and EOMI. ENT: Nares clear, no rhinorrhea or epistaxis. Mucous membranes moist.TM;s normal throat pink with no swelling noted NECK: Supple. no lymphadenopathy CHEST: Clear to auscultation. No respiratory distress.SAO2 99% on room air HEART: Regular rate and rhythm. No murmur heard. Normal peripheral pulses. ABDOMEN: Soft, nontender, nondistended, normal active bowel sounds. EXTREMITIES: Normal range of motion. No edema. denies any pain or any numbness or tingling to her legs, pain localized across lower back which increases with position changes and ambulation. SKIN: Warm, dry, no rash. NEURO: No focal deficits. Alert and oriented x3. Course Course Emergency Course: Patient is aware of diagnosis, understands and agrees to treatment plan. Anticipatory guidance given. Patient agrees to follow-up as directed and is aware of reasons to seek care at the emergency department. Portions of this record may have been created with voice recognition software Level of Care: Express Care Visit Vital Signs Vital signs: Vital Signs Temperature 36.7 C 11/13/24 09:20 Pulse Rate 89 11/13/24 09:20 Respiratory Rate 12 11/13/24 09:20 Blood Pressure 137/83 11/13/24 09:20 Pulse Oximetry 99 11/13/24 09:20 Temperature 36.7 C 11/13/24 09:20 Pulse Rate 89 11/13/24 09:20 Respiratory Rate 12 11/13/24 09:20 Blood Pressure 137/83 11/13/24 09:20 Pulse Oximetry 99 11/13/24 09:20 Reviewed MDM - Back Pain/Injury Differential Diagnosis Differential diagnosis: Likely strain of lumbar region and other (lumbar back pain, muscle spasms) Medical Records Attestation: I reviewed the patient's medical records. Critical Care Time Critical Care Time Critical Care Time: No Discharge Plan Discharge Clinical Impression: Strain of lumbar region Qualifiers: Encounter type: initial encounter Qualified Code(s): S39.012A - Strain of muscle, fascia and tendon of lower back, initial encounter Patient Disposition: Home Condition: Stable Instructions: Back Pain (ED) Additional Instructions: Ice and heat to the area for 20-30 minutes Gentle stretching exercises Gentle massage Caution with lifting, bending, stooping, twisting Avoid pushing, pulling take muscle relaxants as directed--caution drowsiness and no driving or alcohol Anti-inflammatory medicine as directed--take with food He may take the muscle relaxant and anti-inflammatory at the same time May use topical ointment such as Heriberto-Jerez with lidocaine, or [id number] Salonpas patches Follow-up with your PCP if not improving in 5-7 days If your symptoms persist, change or worsen significantly before you can contact your personal physician then please, without delay, go to the emergency department for further evaluation. Follow-up with PCP in 7-10 days or sooner if needed Follow up with PCP soon in regards to your blood pressure which is elevated above threshold for referral. Blood pressure above 120/80 may indicate pre- hypertension. 137/83 Patient Language: Turkmen Prescriptions: New cyclobenzaprine 10 mg tablet 10 mg PO TID PRN (Reason: muscle spasm) Qty: 20 0RF Rx Instructions: May take during the day if you are not going to be going anywhere or driving. Absolutely no alcohol while taking this medication. Take at bedtime daily though prednisone 20 mg tablet 40 mg PO DAILY Qty: 10 0RF Rx Instructions: take with food No Action calcium carbonate-vitamin D3 [Calcium 600 with Vitamin D3] 600 mg(1,500mg) - 500 unit capsule 1 cap PO HS multivitamin [Multiple Vitamins] Tablet 1 tablet PO DAILY Patient Comments: QAM Prolia 60 mg/mL syringe 60 mg subcut [id number] Qty: 1 2RF Patient Comments: LD 08/2024 atorvastatin 10 mg tablet 10 mg PO DAILY Qty: 90 1RF Follow-up/Referrals: Annamarie Lord DO [Primary Care Provider] - Time of Disposition: 09:59 Quality Francisco Coma Scale Eyes: Open Verbal: Oriented and Alert Motor: Follows Commands Francisco Coma Total Score: 15
== END 2024-11-13 10:08 | disposition home or self-care (01) ==
PROVIDERS: Emergency Provider Registered Nurse; PCP Family Medicine
DX: S39.012A Strain of muscle, fascia and tendon of lower back, initial encounter (principal); X50.0XXA Overexertion from strenuous movement or load, initial encounter; M81.0 Age-related osteoporosis without current pathological fracture; M19.90 Unspecified osteoarthritis, unspecified site; E78.5 Hyperlipidemia, unspecified; Z87.891 Personal history of nicotine dependence
CPT/HCPCS: 99213; G0463

== ENCOUNTER 2024-12-19 08:19 | Emergency (ER) | payer MEDICARE, SELFPAY ==
--- NOTE | 2024-12-19 08:21 | ED_ITS ---
HPI - URI/Sore Throat General Chief Complaint: Upper Respiratory Infection Stated Complaint: sore throat/cough Time Seen by Provider: 12/19/24 08:20 Source: patient Mode of arrival: ambulatory Limitations: no limitations History of Present Illness HPI Narrative: Patient is a 69-year-old female who presents with cough nasal congestion drainage for the 5 days. Patient has taken Mucinex once. And used Afrin nasal spray daily. Denies any fever, chills, nausea, vomiting, diarrhea. Related Data Home Medications ?Medication ?Instructions ?Recorded ?Confirmed ?Last Taken ?Type multivitamin (Multiple Vitamins 1 tablet PO DAILY 07/20/19 11/13/24 10/18/24 History tablet) calcium 600 mg (as 1 cap PO HS 08/04/19 11/13/24 10/18/24 History carbonate)-vitamin D3 12.5 mcg (500 unit) capsule (Calcium with Vit D3) Allergies Allergy/AdvReac Type Severity Reaction Status Date / Time nitrofurantoin Allergy Unknown Dyspnea / Verified 12/19/24 08:42 SOB Review of Systems Review of Systems: All systems reviewed & are unremarkable except as noted in HPI and below Constitutional: Constitutional: Denies chills, Denies fatigue, Denies fever(s), Denies headache(s), Denies malaise and Denies weakness Eyes: Eyes: Denies blurry vision, Denies itchy eyes and Denies loss of vision ENT: Denies otalgia, Denies headache(s), Reports nasal congestion, Denies sinus pain and Denies sore throat Cardiovascular: Cardiovascular: Denies chest pain, Denies irregular heart rhythm and Denies dyspnea Respiratory: Respiratory: Reports cough and Denies dyspnea Gastrointestinal: Gastrointestinal: Denies abdominal pain, Denies diarrhea, Denies nausea and Denies vomiting Musculoskeletal: Musculoskeletal: Denies back pain, Denies myalgias and Denies arthralgias Integumentary/Breasts: Skin/Breast: Denies pruritus and Denies rash Neurologic: Denies headache(s), Denies loss of vision and Denies weakness Psychiatric: Psychiatric: Reports no additional psychiatric complaints Endocrine: Endocrine: Denies fatigue Allergic/Immunologic: Allergic/Immunologic: Denies itchy eyes PMFSH Past Medical History Medical History Family history of colon cancer Osteoporosis Arthritis Hepatitis C antibody test negative (01/02/20) Dyslipidemia Surgical History Surgical History De Quervain's tenosynovitis, left Left first dorsal compartment release April 14, 2022 History of bilateral carpal tunnel release Family History Family History Mother Diabetes mellitus Family history of glaucoma Family history of cardiac disorder Family history of coronary artery disease Father Hypertension Family history of elevated blood lipids Family history of coronary artery disease Family history of malignant neoplasm of esophagus Cancer Heart disease Sibling Hypertension Carcinoma of colon Cancer Depression Grandparent Family history of malignant neoplasm of bone Family history of coronary artery disease Cancer Diabetes mellitus Heart disease Other Cancer Social History Social History Years smoked: 30 Smoking status: Former smoker Tobacco type: cigarettes Second hand tobacco smoke exposure: No Additional smoking assessment comments: Quit a long time ago Alcohol intake: never Substance use: never Substance use type: does not use Lack of Transportation: No Lack of Food: Never True Current Housing: I Have Housing Concerned About Future Housing: No Difficulty Paying Gas/Electric Bills: No Difficulty Paying for Meds: No Currently Unemployed: No Education: High School Diploma/GED Difficulty w/ Childcare or Family Care: No Living arrangements: with family Additional living arrangements comments: Occupation/Education: retired Gender identity (if verbalized by the patient): Female Sexual Orientation (if Verbalized by the Patient): Straight or Heterosexual Spiritual care concerns: Yes (Moravian) Agree to blood products: Yes Comments At time of signature, agree with nursing past medical, surgical, social and family history. There is no relevant family history pertinent to the presenting complaint. Exam Const: General: cooperative, healthy appearing, comfortable, no acute distress and well nourished Nutritional Appearance: well nourished Orientation/consciousness: patient oriented x3 Limitations: no limitations HENMT: Head: normal to inspection, normocephalic and atraumatic Ears: hearing grossly normal bilaterally, external ears normal, TM's normal bilaterally, EAC's normal and no periauricular adenopathy Face/Nose/Sinus: Normal external nose present, Abnormal mucous membranes and turbinates present erythematous bilateral and diffuse, normal facial exam, sinuses nontender and face symmetric Face and sinus: normal facial exam, sinuses nontender and face symmetric Mouth: Yes Normal oral and palatal mucosa present, Yes lip normal, Yes tongue normal, Yes Normal salivary glands and ducts present, Yes oropharynx normal and Yes moist mucous membranes Teeth and gingiva: dentition normal Throat: posterior oropharynx normal, tonsils normal and uvula midline Eyes: General: appearance normal, both eyes and all related structures Alignment and Position: alignment normal and position normal Periorbital: periorbital findings normal Eyelids: eyelids normal Pupils: Equal, round and reactive pupils present Neck: Neck: normal visual inspection, full ROM, no lymphadenopathy and supple Chest: Chest palpation & inspection: normal inspection of the chest and normal palpation of entire chest wall Resp: Effort & Inspection: normal respiratory effort and able to speak in complete sentences Auscultation: clear to auscultation bilaterally, no crackles, no rales, no rhonchi and no wheezes Cardio: Rate: regular rate Rhythm: regular rhythm Heart sounds: S1 normal heart sound present and S2 normal heart sound present GI: Inspection: normal to inspection Skin: General skin exam: normal color and no rashes or lesions noted Neuro: General: patient oriented x3 and moves all extremities Cranial nerves: Yes Equal, round and reactive pupils present Speech: normal speech Gait exam (Neuro): Normal gait present Extrem: General: normal to inspection, full ROM and no edema Psych: Appearance: grossly normal and well kempt Mental Status: mental status grossly normal Speech and movement: Normal speech and movement present Affect: normal affect Attitude: cooperative Thought process: Normal thought process present Course Course Emergency Course: Discharge instructions reviewed with patient, as well as provided in writing per nursing staff. The instructions also include specific and strict return/GO TO THE ER as well as f/u information. All questions have been answered, and the patient deny any further questions with discharge and discharge plan. Portions of this record may have been created with voice recognition software Level of Care: Express Care Visit Vital Signs Vital signs: Reviewed MDM - URI/Sore Throat MDM Narrative Medical decision making narrative: Pt well hydrated appearing, in no respiratory distress, hemodynamically stable. Recommend supportive care. The patient is stable at time of discharge the clinical impression was discussed and the patient was given the opportunity to ask questions, which were addressed as completely as possible given the information available at present. Anticipatory guidance and return to care precautions were discussed and the importance of primary care follow-up was stressed and encouraged. The patient voiced understanding of the plan, indications to return, and the need for follow-up. Exam findings show no acute concerns or changes Patient is appropriate for outpatient treatment and follow-up. Differential diagnosis considered: Fonseca virus, strep pharyngitis, allergic rhinitis, upper respiratory tract infection, sinusitis, rhinosinusitis, nasopharyngitis. viral pharyngitis, otitis media, otitis externa, otitis effusion, foreign body, cerumen impaction, viral syndrome, and influenza.? Medical Records Attestation: I reviewed the patient's medical records. Discharge Plan Discharge Clinical Impression: Acute upper respiratory infection Patient Disposition: Home Condition: Stable Instructions: Upper Respiratory Infection (ED) Additional Instructions: Use Tessalon Perles as needed for cough. Use inhaler with spacer as needed. Other symptomatic treatments include: -Alternate Tylenol and Motrin per package directions for fever or pain: Tylenol 650-1000mg by mouth every 4-6 hours. Do not exceed 4000mg in 24 hours. Advil (Ibuprofen) 600 mg by mouth every 6 hours. Do not exceed 2400mg in 24 hours. 8 AM: Tylenol 11 AM: Ibuprofen 2 PM: Tylenol 5 PM: Ibuprofen 8 PM: Tylenol 11 PM: Ibuprofen 2 AM: Tylenol 5 AM: Ibuprofen -Antihistamine medication such as Benadryl at night and Zyrtec/Claritin/Rosita during the day can help improve symptoms. -Use Flonase twice a day for 5 days then daily to help reduce the inflammation and dry up your sinuses. -You can also use Sudafed behind the pharmacy counter. Be sure to drink plenty of water with these medications at least 8 ounces with every dose and it is important to drink 8 to 10 glasses of water per day. Water is a natural decongestant -Eat and drink things that are easy to swallow, like tea or soup, or popsicles. -Oral rinses such as: Salt water gargles and/or may use topical anesthetic (eg. Chloraseptic spray) or lozenges to relieve dryness or throat pain). -Frequent hand washing or hand lasting floorworker is one of the best ways to prevent spread of infection. -Using a vaporizer or humidifier at night will also help thin secretions and help with coughing up phlegm. Call your Primary Care Doctor and make a follow-up appointment in 3 days. If your cough worsens, you develop a fever greater than 103, you develop shaking chills, a fast heartbeat, trouble breathing and/or feel you are are breathing much faster than usual, call your Primary Care Doctor or go to the ER. Patient Language: Pashto Prescriptions: New (DME) Aerochamber MV Spacer See Rx Instructions .Route Qty: 1 0RF Rx Instructions: As directed benzonatate 100 mg capsule 100 mg PO BID PRN (Reason: cough) Qty: 14 0RF albuterol sulfate 90 mcg/actuation HFA aerosol inhaler 2 puff inhalation QID PRN (Reason: shortness of breath or wheezing) Qty: 6.7 0RF fluticasone propionate [Flonase Allergy Relief] 50 mcg/actuation spray,suspension 1 spray intranasal DAILY Qty: 16 0RF Rx Instructions: administer into each nostril No Action cyclobenzaprine 10 mg tablet 10 mg PO TID PRN (Reason: muscle spasm) Qty: 20 0RF Rx Instructions: May take during the day if you are not going to be going anywhere or driving. Absolutely no alcohol while taking this medication. Take at bedtime daily though calcium carbonate-vitamin D3 [Calcium 600 with Vitamin D3] 600 mg(1,500mg) - 500 unit capsule 1 cap PO HS multivitamin [Multiple Vitamins] Tablet 1 tablet PO DAILY Patient Comments: QAMarina Prolia 60 mg/mL syringe 60 mg subcut [id number] Qty: 1 2RF Patient Comments: LD 08/2024 atorvastatin 10 mg tablet 10 mg PO DAILY Qty: 90 1RF Follow-up/Referrals: Annamarie Lord DO [Primary Care Provider] - 3 Days Time of Disposition: 09:06
[2024-12-19 08:30] VITALS: BP 131/80; PULSE 98; RESP 16; TEMP 36.9; O2SAT 98
== END 2024-12-19 09:19 | disposition home or self-care (01) ==
PROVIDERS: Emergency Provider Nurse Practitioner Family; PCP Family Medicine
DX: J06.9 Acute upper respiratory infection, unspecified (principal); E78.5 Hyperlipidemia, unspecified; M19.90 Unspecified osteoarthritis, unspecified site; M81.0 Age-related osteoporosis without current pathological fracture; Z87.891 Personal history of nicotine dependence
CPT/HCPCS: 99213; G0463